=== PATIENT | male | born 1985 | race Hispanic/Latino ===

== ENCOUNTER 2016-12-03 18:43 | Emergency (ER) | payer SELFPAY ==
[2016-12-03] MEDS ORDERED: Ciprofloxacin 500 MG TAB ONE (19:17)
[2016-12-03] MEDS ORDERED: Neomycin/Polymyxin/HC Otic Solution 10 ML BOT ONE (19:17)
== END 2016-12-03 19:24 | disposition home or self-care (01) ==
LOC: MADERS 18:43
DX: T70.0XXA Otitic barotrauma, initial encounter (principal); X58.XXXA Exposure to other specified factors, initial encounter
CPT/HCPCS: 99282

== ENCOUNTER 2024-09-21 07:47 | Emergency (ER) | payer SELFPAY ==
[2024-09-21] MEDS ORDERED: Lidocaine 1% PF 5 ML VIAL ONE (08:15)
== END 2024-09-21 08:54 | disposition home or self-care (01) ==
LOC: MADERS 07:47
DX: S61.300A Unspecified open wound of right index finger with damage to nail, initial encounter (principal); X58.XXXA Exposure to other specified factors, initial encounter
CPT/HCPCS: 11750